=== PATIENT | female | born 1950 | race Caucasian/White ===

== ENCOUNTER 2020-11-16 04:31 | Emergency (ER) | payer MEDICARE ==
[~2020-11-16] VITALS: Ht 157.5 cm; Wt 40.8 kg
[~2020-11-16 04:31] MED LIST: ALBU90OI INH; Alph-E-Mixed400 UNIT PO; DULO60 PO; ENOX30I SC; GABA300 PO; HYDACE10B PO; HYDR1TAB94 PO; Hair, Skin & N1 EACH; Hair, Skin & N1 EACH PO; LISI20 PO; METH10 PO; Mobic15 MG PO; OXYACE7.5T PO; OXYC15ER PO; PREG75 PO; TRAM50 PO; VITAMIN E PO
== END 2020-11-16 06:20 | disposition home or self-care (01) ==
LOC: ER 04:31
DX: S70.02XA Contusion of left hip, initial encounter (principal); I10 Essential (primary) hypertension; J45.909 Unspecified asthma, uncomplicated; Z88.2 Allergy status to sulfonamides; Z79.899 Other long term (current) drug therapy; W18.30XA Fall on same level, unspecified, initial encounter
CPT/HCPCS: 73502; 99283-25

== ENCOUNTER 2023-06-24 06:13 | Day surgery (SDC) | payer MEDICARE ==
[~2023-06-24] VITALS: Ht 157.5 cm; Wt 41.8 kg
--- NOTE | 2023-06-24 06:55 | NUR ---
06/24/23 0654 Bianca Joyce IN AT 0632 PLEDGETT IN AT 0640 CALL LIGHT PLACED
[2023-06-24] MEDS ORDERED: ATOR40TA PO (06:56)
[2023-06-24 07:59] VITALS: BP 127/100
--- NOTE | 2023-06-24 08:15 | NUR ---
06/24/23 0815 Radha Mcintyre IV REMOVED, CANNULA INTACT, PT SHARMAINE WELL. PT DENIES NAUSEA AND PAIN.
== END 2023-06-24 08:15 | disposition home or self-care (01) ==
LOC: ORSCSDS 06:13
PROVIDERS: Student in an Organized Health Care Education/Training Program
PROC: 08RK3JZ Replacement of Left Lens with Synthetic Substitute, Percutaneous Approach (ICD-10-PCS; principal; 2023-06-24 07:30)
DX: H25.13 Age-related nuclear cataract, bilateral (principal); I10 Essential (primary) hypertension; Z79.899 Other long term (current) drug therapy
CPT/HCPCS: J2001; J2250; J3010; J3301; J7040; V2632

== ENCOUNTER 2023-07-01 06:39 | Day surgery (SDC) | payer MEDICARE ==
[~2023-07-01] VITALS: Ht 152.4 cm; Wt 41.9 kg
[~2023-07-01 06:39] MED LIST changes: +ATOR40TA PO
--- NOTE | 2023-07-01 07:13 | NUR ---
07/01/23 0713 Shobha Strauss TETRACAINE DROP IN RIGHT EYE AT 0702 PLEDGET PLACED IN RIGHT EYE AT 0703 PATIENT TOLERATED WELL
[2023-07-01 08:25] VITALS: BP 124/77
--- NOTE | 2023-07-01 08:31 | NUR ---
07/01/23 0831 Radha Mcintyre IV REMOVED CANNULA INTACT, PT SHARMAINE WELL. IV SITE WNL. PT DENIES NAUSEA AND PAIN
== END 2023-07-01 08:39 | disposition home or self-care (01) ==
LOC: ORSCSDS 06:39
PROVIDERS: Student in an Organized Health Care Education/Training Program
PROC: 08RJ3JZ Replacement of Right Lens with Synthetic Substitute, Percutaneous Approach (ICD-10-PCS; principal; 2023-07-01 08:00)
DX: H25.11 Age-related nuclear cataract, right eye (principal); Z96.1 Presence of intraocular lens; I10 Essential (primary) hypertension; J45.909 Unspecified asthma, uncomplicated; M06.9 Rheumatoid arthritis, unspecified
CPT/HCPCS: J2001; J2250; J3010; J7040; V2632

== ENCOUNTER → 2023-12-28 | Outpatient (CLI) | payer OTHER | LOC: LAB SHORT 12:20 → LAB 12:20 | DX: R35.0 Frequency of micturition (principal) | CPT/HCPCS: 87086 ==

== ENCOUNTER → 2024-08-24 | Outpatient (CLI) | payer OTHER ==
[2024-08-24 16:24] LABS: BASOPHILS ABSOLUTE AUTO 0.08 K/mm3 (0.00-0.23); BASOPHILS PERCENT AUTO 1 % (0-2); EOSINOPHILS PERCENT AUTO 15 % (0-6); Hemoglobin 13.2 g/dL (11.5-16.0); IMMATURE GRAN ABSOLUTE AUTO 0.01 K/mm3 (0.00-0.10); IMMATURE GRAN PERCENT AUTO 0 % (0-1); LYMPHOCYTES ABSOLUTE AUTO 1.88 K/mm3 (0.84-5.20); LYMPHOCYTES PERCENT AUTO 30 % (21-46); MONOCYTES ABSOLUTE AUTO 0.62 K/mm3 (0.16-1.47); MONOCYTES PERCENT AUTO 10 % (4-13); Mean Corpuscular HGB 30.4 pg (26.0-34.0); Mean Corpuscular Volume 92 fL (80-100); Mean Platelet Volume 11.1 fL (9.1-12.4); NEUTROPHILS PERCENT AUTO 44 % (41-73); Platelet Count 323 K/mm3 (150-400); RDW Coefficient Variation 12.9 % (11.7-14.2); RDW Standard Deviation 43.9 fL (35.1-46.3); Red Blood Cell Count 4.34 M/mm3 (3.80-5.20); White Blood Cell Count 6.19 K/mm3 (4.00-11.30)
[2024-08-24 16:30] LABS: Alanine Aminotransfer (ALT/SGP 21 U/L (12-78); Alk Phos 62 U/L (50-136); Anion Gap 8 mmol/L (3-11); Aspartate Aminotrans (AST/SGOT 26 U/L (12-37); Bilirubin, Total 0.5 mg/dL (0.1-1.0); Blood Urea Nitrogen 24 mg/dL (8-24); Bun/Creatinine Ratio 28.1 (12.0-20.0); CO2, Blood 27 mmol/L (21-32); Calcium, Blood 8.9 mg/dL (8.5-10.1); Chloride, Blood 107 mmol/L (98-108); Cholesterol 185 mg/dL (50-200); Creatinine, Blood 0.85 mg/dL (0.40-1.00); Globulin, Blood 4.1 g/dL (2.2-4.0); Glomerular Filtration Rate 72 (60-); Glucose, Blood 129 mg/dL (70-99); HDL Cholesterol 92 mg/dL (>39); LDL/HDL RATIO 0.9; Low Density Lipoprotein Chol 81 mg/dL (0-110); Potassium, Blood 4.7 mmol/L (3.5-5.5); Sodium, Blood 137 mmol/L (136-145); Total Protein, Blood 8.1 g/dL (6.4-8.2); Triglycerides 60 mg/dL (30-160); Very Low Density Lipoprot Chol 12 mg/dL (6-32)
== END | disposition home or self-care (01) ==
LOC: LAB 15:38 → LAB SHORT 15:38
PROVIDERS: Family Medicine
DX: Z51.81 Encounter for therapeutic drug level monitoring (principal); Z79.899 Other long term (current) drug therapy
CPT/HCPCS: 80053; 80061; 82306; 83036; 84443; 85025

== ENCOUNTER 2025-09-19 20:06 | Observation (INO) | payer OTHER ==
[~2025-09-19] VITALS: Ht 152.4 cm; Wt 40.8 kg
[2025-09-19 20:50] LABS: BASOPHILS ABSOLUTE AUTO 0.04 K/mm3 (0.00-0.23); BASOPHILS PERCENT AUTO 1 % (0-2); EOSINOPHILS ABSOLUTE AUTO 0.38 K/mm3 (0.00-0.68); EOSINOPHILS PERCENT AUTO 5 % (0-6); Hematocrit 35.5 % (33.0-51.0); Hemoglobin 11.9 g/dL (11.5-16.0); IMMATURE GRAN ABSOLUTE AUTO 0.02 K/mm3 (0.00-0.10); IMMATURE GRAN PERCENT AUTO 0 % (0-1); LYMPHOCYTES ABSOLUTE AUTO 1.47 K/mm3 (0.84-5.20); LYMPHOCYTES PERCENT AUTO 19 % (21-46); MONOCYTES ABSOLUTE AUTO 0.69 K/mm3 (0.16-1.47); MONOCYTES PERCENT AUTO 9 % (4-13); Mean Corpuscular HGB Conc 33.5 g/dL (31.5-36.5); Mean Corpuscular Volume 91 fL (80-100); NEUTROPHILS ABSOLUTE AUTO 5.36 K/mm3 (1.96-9.15); NEUTROPHILS PERCENT AUTO 67 % (41-73); NRBC ABSOLUTE 0.00 K/mm3 (0.00-0.02); NRBC Auto 0.0 /100 WBC (0.0-0.2); Platelet Count 408 K/mm3 (150-400); RDW Coefficient Variation 12.7 % (11.7-14.2); RDW Standard Deviation 41.7 fL (35.1-46.3)
[2025-09-19 21:17] LABS: Alanine Aminotransfer (ALT/SGP 29.0 U/L (12-78); Albumin, Blood 4.1 g/dL (3.4-5.0); Albumin/Globulin Ratio 1.0 (0.8-1.8); Anion Gap 6.0 mmol/L (3-11); Aspartate Aminotrans (AST/SGOT 28.0 U/L (12-37); Bilirubin, Total 0.4 mg/dL (0.1-1.0); Blood Urea Nitrogen 20.0 mg/dL (8-24); CO2, Blood 27.0 mmol/L (21-32); Calcium, Blood 9.4 mg/dL (8.5-10.1); Chloride, Blood 104.0 mmol/L (98-108); Creatinine, Blood 0.76 mg/dL (0.40-1.00); Globulin, Blood 4.0 g/dL (2.2-4.0); Glucose, Blood 135.0 mg/dL (70-99); Potassium, Blood 4.0 mmol/L (3.5-5.5); Sodium, Blood 133.0 mmol/L (136-145); Total Protein, Blood 8.1 g/dL (6.4-8.2)
[2025-09-19] MEDS ORDERED: FLU VACC TS2025(65UP)/MF59C/PF 45 MCG/0.5 ML SYRINGE IM SCH (23:15)
[2025-09-20] MEDS ORDERED: ALEN70 PO (00:06)
[2025-09-20 01:01] VITALS: BP 184/83
[2025-09-20 03:50] VITALS: BP 158/100
[2025-09-20 04:28] LABS: BASOPHILS ABSOLUTE AUTO 0.03 K/mm3 (0.00-0.23); BASOPHILS PERCENT AUTO 0 % (0-2); EOSINOPHILS ABSOLUTE AUTO 0.38 K/mm3 (0.00-0.68); EOSINOPHILS PERCENT AUTO 6 % (0-6); Hematocrit 34.8 % (33.0-51.0); Hemoglobin 12.0 g/dL (11.5-16.0); IMMATURE GRAN ABSOLUTE AUTO 0.02 K/mm3 (0.00-0.10); IMMATURE GRAN PERCENT AUTO 0 % (0-1); LYMPHOCYTES ABSOLUTE AUTO 1.20 K/mm3 (0.84-5.20); LYMPHOCYTES PERCENT AUTO 18 % (21-46); MONOCYTES ABSOLUTE AUTO 0.69 K/mm3 (0.16-1.47); MONOCYTES PERCENT AUTO 10 % (4-13); Mean Corpuscular HGB Conc 34.5 g/dL (31.5-36.5); Mean Corpuscular Volume 91 fL (80-100); NEUTROPHILS ABSOLUTE AUTO 4.55 K/mm3 (1.96-9.15); NEUTROPHILS PERCENT AUTO 66 % (41-73); NRBC ABSOLUTE 0.00 K/mm3 (0.00-0.02); NRBC Auto 0.0 /100 WBC (0.0-0.2); Platelet Count 357 K/mm3 (150-400); RDW Coefficient Variation 12.7 % (11.7-14.2); RDW Standard Deviation 42.1 fL (35.1-46.3)
[2025-09-20 05:05] LABS: Alanine Aminotransfer (ALT/SGP 23 U/L (12-78); Albumin, Blood 3.7 g/dL (3.4-5.0); Albumin/Globulin Ratio 1.0 (0.8-1.8); Anion Gap 11 mmol/L (3-11); Aspartate Aminotrans (AST/SGOT 24 U/L (12-37); Bilirubin, Total 0.4 mg/dL (0.1-1.0); Blood Urea Nitrogen 21 mg/dL (8-24); CHOL/HDL RATIO 2.0; CO2, Blood 22 mmol/L (21-32); Calcium, Blood 8.8 mg/dL (8.5-10.1); Chloride, Blood 107 mmol/L (98-108); Cholesterol 168 mg/dL (50-200); Creatinine, Blood 0.65 mg/dL (0.40-1.00); Globulin, Blood 3.8 g/dL (2.2-4.0); Glucose, Blood 120 mg/dL (70-99); HDL Cholesterol 83 mg/dL (>39); LDL/HDL RATIO 0.9; Low Density Lipoprotein Chol 72 mg/dL (0-110); Magnesium, Blood 2.3 mg/dL (1.6-2.4); Potassium, Blood 4.2 mmol/L (3.5-5.5); Sodium, Blood 136 mmol/L (136-145); Thyroid Stimulating Hormone 2.500 uIU/mL (0.360-4.800); Total Protein, Blood 7.5 g/dL (6.4-8.2); Triglycerides 64 mg/dL (30-160); Very Low Density Lipoprot Chol 12 mg/dL (6-32)
--- NOTE | 2025-09-20 06:34 | NUR ---
Shift Summary Pt admitted to this unit from ED for symptoms of CVA. Pt has baseline neuropathy but has felt increased numbness in both hands and feet the last two days and she has felt much weaker than baseline. She is weak and unsteady on her feet, she is 1 assist to the BSC w FWW. She is AOx4, eyes PERRLA, strength nearly equal in both sides. R leg is a bit weaker and L hand feels a bit weaker. Bed alarm on, pt did wake up and try to get out of bed without calling once.
[2025-09-20 07:31] VITALS: BP 178/106
[2025-09-20] MEDS ORDERED: Enoxaparin 40 MG/0.4 ML SYR SC SCH (09:00)
[2025-09-20] MEDS ORDERED: ROXICODONE15 MG PO (09:07)
--- NOTE | 2025-09-20 09:45 | NUR ---
SPOKE TO MD- RESIDENTS ROUNDING ON THE PT. THIS RN ASKED THE PT ABOUT HER PAIN AND SHE STATED "OH, MY PAIN IS GOOD. I TOOK MY PAIN PILL A LITTLE BIT AGO." AT THE BEDSIDE, THEY ARE AWARE THE PT SELF MEDICATED. PT PROVIDED HER HOME PAIN MEDS (15MG OXY IR). THIS RN TOOK THE UNLABELED BOTTLE AND THE OTHER BOTTLE WITH A LABEL TO THE PHARMACY, THEY CONFIRMED THREE DIFFERENT MANUFACTURERS OF 15MG OXY WITH A COUNT OF 70. THEY PLACED THEM IN THE SAFE. PT DAUGHTER IS SUPPOSED TO PICK THEM UP LATER TODAY. HOME MED REC COMPLETED WITH THE PT. BP ELEVATED, MD AWARE. NO BP MEDS AT THIS TIME. MRI PLANNED FOR THIS AM.
[2025-09-20 11:45] VITALS: BP 153/108
[2025-09-20] MEDS ORDERED: Albuterol HFA200 ACT/6.7 GM INH INH PRN (12:40)
--- NOTE | 2025-09-20 12:40 | NUR ---
CALLED DR SANCHEZ- PT HOME MEDS NOT YET ORDERED. BP ELEVATED. MRI RAEDING IS IN THE CHART. CALLED DR SANCHEZ. HE IS ORDERING THE PT HOME MEDS NOW. PT TO DC HOME TODAY.
[2025-09-20 15:28] VITALS: BP 146/98
[2025-09-20] MEDS ORDERED: CLOP75 PO (17:11)
--- NOTE | 2025-09-20 17:30 | NUR ---
DISCHARGE NOTE- PT WAS GIVEN VERBAL AND WRITTEN DISCHARGE INSTRUCTIONS AND ACKNOWLEDGED UNDERSTANDING OF THEM. RN LACTATION ASSISTING THE PT WITH THE DC OF HER IV AND TELE. PT GETTING DRSSED AT THIS TIME. FAMILY WILL BE PICKING HER UP. PT HAS MEDS AT THE PHARMACY AND SHE IS AWARE STAFF NEED TO GO GET THEM PRIOR TO HER LEAVING. PT WILL BE ESCORTED OUT VIA WC BY THE RN LACTATION WHEN HER RIDE ARRIVES. NO CURRENT S&S OF DISTRESS NOTED.
--- NOTE | 2025-09-20 18:38 | NUR ---
DISCHARGE NOTE- PT MEDS WERE RETRIVED FROM PHARMACY FOR THE PT AND SHE HAD THIS RN PLACE THEM IN HER PURSE THAT WAS IN HER HANDS.
[2025-09-22] MEDS ORDERED: LORA.5 PO (20:46)
== END 2025-09-20 18:27 | disposition home or self-care (01) ==
LOC: ER 20:06 → ERHOLD 20:07 → MEDS 09-20 00:46
PROVIDERS: Student in an Organized Health Care Education/Training Program; ADMIT Student in an Organized Health Care Education/Training Program
DX: I63.232 Cerebral infarction due to unspecified occlusion or stenosis of left carotid arteries (principal); R20.2 Paresthesia of skin; R20.0 Anesthesia of skin; R29.703 NIHSS score 3; I10 Essential (primary) hypertension; G62.9 Polyneuropathy, unspecified; J45.909 Unspecified asthma, uncomplicated; Z79.899 Other long term (current) drug therapy; Z88.2 Allergy status to sulfonamides
CPT/HCPCS: 36415; 70450; 70496; 70498; 70551; 80053; 80061; 83036; 83735; 84443; 85025; 93005; 93010; 96372; 99285-25; A6590; A9270; G0378; J1650; Q9967

== ENCOUNTER 2025-09-22 14:37 | Emergency (ER) | payer OTHER | END 2025-09-22 22:20 | disposition home or self-care (01) | LOC: ER 14:37 | DX: F41.9 Anxiety disorder, unspecified (principal); R53.1 Weakness; R62.7 Adult failure to thrive; J45.909 Unspecified asthma, uncomplicated; I10 Essential (primary) hypertension; Z79.02 Long term (current) use of antithrombotics/antiplatelets; Z79.899 Other long term (current) drug therapy; Z88.2 Allergy status to sulfonamides ==